=== PATIENT | female | born 1980 | race Caucasian/White ===

== ENCOUNTER 2018-08-01 10:36 | Emergency (ER) | payer OTHER, SELFPAY ==
[2018-08-01 11:09] VITALS: BP 141/93; PULSE 87; RESP 16; TEMP 36.5; O2SAT 100; BMI 34.7
--- NOTE | 2018-08-01 13:04 | ED_ITS ---
HPI - Headache [facility] Last Filed: 08/01/18 16:20> General Chief Complaint: Headache Stated Complaint: Migraine,throwing up Time Seen by Provider: 08/01/18 12:04 Source: patient Mode of arrival: ambulatory Limitations: no limitations History of Present Illness HPI Narrative: The patient is a 38-year-old female nonsmoker who presents with a chief complaint of a migraine since 6:00 a.m. this morning. She denies any thunderclap sensation. She complains of noise sensitivity, less light sensitivity. She complains of nausea vomiting. She took a dose of ibuprofen this morning at about 6:00 a.m., then took 2 doses of Imitrex. Of note she was recently treated for strep throat. she denies any chest pain, shortness of breath, fever. She states her strep throat as much resolved. She denies any thunderclap sensation confusion or altered mental status. She denies any possibility of . She states that the headache as wrapping around front her head like a tension headache. Related Data Previous Rx's Medication Instructions Recorded ondansetron [Zofran ODT] 4 mg SUBLINGUAL Q6HP PRN #5 odt 05/04/17 Allergies Allergy/AdvReac Type Severity Reaction Status Date / Time No Known Drug Allergies Allergy Verified 08/01/18 11:09 Review of Systems <[facility] Last Filed: 08/01/18 16:20> Review of Systems GENERAL: Denies chills, fatigue, malaise, fever, sweats. HEENT: See HPI RESPIRATORY: Denies dyspnea, cough, wheezing, hemoptysis, sputum. CARDIOVASCULAR: Denies chest pain, palpitations, orthopnea, edema, GASTROINTESTINAL: See HPI : Denies dysuria, frequency, incontinence, hematuria, urinary retention. MUSCULOSKELETAL: denies weakness, joint pain, or bony pain SKIN: Denies rash, skin lesions, or other NEUROLOGIC: Denies weakness, headache, numbness, change in speech, confusion, seizures, incoordination. PSYCHIATRIC: No concerning psychosocial issues. 12 point review of systems is negative except for those stated above PFSH <[facility] Last Filed: 08/01/18 16:20> Medical History (Updated 08/01/18 @ 14:49 by JYOTI Kong) Migraines (Acute) Social History Smoking Status: Never smoker Social History Smoking Status: Never smoker Exam <JYOTI Kong - Last Filed: 08/01/18 16:20> Narrative Exam Narrative: GENERAL: This is a well-nourished, well-developed patient, lying on stretcher in no acute distress HEAD: Atraumatic. Normocephalic. No temporal or scalp tenderness. EYES: Pupils equal round and reactive. Extraocular motions intact. No scleral icterus. No injection or drainage. no nystagmus noted bilaterally. ENT: Nose without bleeding, purulent drainage or septal hematoma. Throat without erythema, tonsillar hypertrophy or exudate. Uvula midline. Airway patent. NECK: Trachea midline. No JVD or lymphadenopathy. Supple, nontender, no meningeal signs. CARDIOVASCULAR: Regular rate and rhythm without murmurs, gallops, or rubs. RESPIRATORY: Clear to auscultation. Breath sounds equal bilaterally. No wheezes, rales, or rhonchi. GASTROINTESTINAL: Abdomen soft, non-tender, nondistended. No hepato- splenomegaly, or palpable masses. No guarding. active bowel sounds all 4 quadrants. EXTREMITIES: No clubbing, cyanosis, or edema. No joint tenderness, effusion, or edema noted. BACK: Nontender without deformity or crepitance. No flank tenderness. NEURO: AOx3. Strength is equal upper and lower extremities bilaterally. cranial nerves grossly intact. steady gait. SKIN: No rash or erythema. Initial Vital Signs Initial Vital Signs: Vital Signs Temperature 97.7 F 08/01/18 11:09 Pulse Rate 87 08/01/18 11:09 Respiratory Rate 16 08/01/18 11:09 Blood Pressure 141/93 H 08/01/18 11:09 Pulse Oximetry 100 08/01/18 11:09 <Cassie Montgomery MD - Last Filed: 08/01/18 16:27> Initial Vital Signs Initial Vital Signs: Vital Signs Temperature 97.7 F 08/01/18 11:09 Pulse Rate 87 08/01/18 11:09 Respiratory Rate 16 08/01/18 11:09 Blood Pressure 141/93 H 08/01/18 11:09 Pulse Oximetry 100 08/01/18 11:09 Course <DEVON Kong-[facility] - Last Filed: 08/01/18 16:20> Orders Ordered: ED Orders 08/01/18 13:15 Urine Culture Stat Urine Microscopic Stat Discontinued Medications Diphenhydramine HCl (Benadryl) 25 mg IV NOW ONE Stop: 08/01/18 12:13 Last Admin: 08/01/18 13:28 Dose: 25 mg Sodium Chloride (Normal Saline 0.9%) 1,000 mls @ 1,000 mls/hr IV BOLUS ONE Stop: 08/01/18 13:11 Last Admin: 08/01/18 13:20 Dose: 1,000 mls/hr Ketorolac Tromethamine (Toradol) 30 mg IV NOW ONE Stop: 08/01/18 12:14 Last Admin: 08/01/18 13:20 Dose: Not Given Metoclopramide HCl (Reglan) 10 mg IV NOW ONE Stop: 08/01/18 12:13 Last Admin: 08/01/18 13:20 Dose: 10 mg Vital Signs - 8 hr 08/01/18 11:09 08/01/18 15:00 Temperature 97.7 F Pulse Rate 87 70 Respiratory Rate 16 17 Blood Pressure 141/93 H 117/77 Pulse Oximetry 100 97 <Cassie Montgomery MD - Last Filed: 08/01/18 16:27> Orders Ordered: ED Orders 08/01/18 13:15 Urine Culture Stat Urine Microscopic Stat Discontinued Medications Diphenhydramine HCl (Benadryl) 25 mg IV NOW ONE Stop: 08/01/18 12:13 Last Admin: 08/01/18 13:28 Dose: 25 mg Sodium Chloride (Normal Saline 0.9%) 1,000 mls @ 1,000 mls/hr IV BOLUS ONE Stop: 08/01/18 13:11 Last Admin: 08/01/18 13:20 Dose: 1,000 mls/hr Ketorolac Tromethamine (Toradol) 30 mg IV NOW ONE Stop: 08/01/18 12:14 Last Admin: 08/01/18 13:20 Dose: Not Given Metoclopramide HCl (Reglan) 10 mg IV NOW ONE Stop: 08/01/18 12:13 Last Admin: 08/01/18 13:20 Dose: 10 mg Vital Signs - 8 hr 08/01/18 11:09 08/01/18 15:00 Temperature 97.7 F Pulse Rate 87 70 Respiratory Rate 16 17 Blood Pressure 141/93 H 117/77 Pulse Oximetry 100 97 MDM - Headache <FRANCISCO JAVIER Kong - Last Filed: 08/01/18 16:20> Lab Data Lab Results 08/01/18 Range/Units 13:15 Urine RBC 0-1/hpf (0-5/HPF) Urine WBC 10-30/hpf H (0-5/HPF) Ur Squamous Epith Cells 1-5 /hpf (0-5/HPF) Ur Transition Epith Cell 0-1/hpf (0-5/HPF) Urine Bacteria None seen (None) Ur Culture Indicated? Specimen cultured Point of Care Testing Test Results Negative Urine Dip Bedside Urine Glucose Negative Bedside Urine Bilirubin - Negative Bedside Urine Ketone - Negative Urine Specific [place] 1.015 Bedside Urine Occult Blood - Negative Bedside Urine pH 8.5 Bedside Urine Protein - Negative Bedside Urine Urobilinogen - Negative Bedside Urine Nitrite - Negative Bedside Urine Leukocytes +++ 500 Esterase MDM Narrative Medical decision making narrative: The patient is a 38-year-old female presents with a chief complaint of a migraine headache. She is currently being treated for strep throat. she was given a headache cocktail here in the emergency department and felt much improved and felt ready to go home. I did discuss deferring imaging given that this is a typical migraine for her. She was okay with this and she has no red flag symptoms such as confusion or a thunderclap. She did have leukocyte esterase in her urine, but denies any UTI symptoms. The she elected to wait for the urine culture before initiating treatment for UTI. Discussed return precautions of confusion, repeat vomiting etc. Discussed signs of worsening UTI including flank pain, fever etc. Encouraged patient to follow up with primary care provider. No questions or concerns upon discharge. <Cassie Montgomery MD - Last Filed: 08/01/18 16:27> Lab Data Lab Results 08/01/18 Range/Units 13:15 Urine RBC 0-1/hpf (0-5/HPF) Urine WBC 10-30/hpf H (0-5/HPF) Ur Squamous Epith Cells 1-5 /hpf (0-5/HPF) Ur Transition Epith Cell 0-1/hpf (0-5/HPF) Urine Bacteria None seen (None) Ur Culture Indicated? Specimen cultured Point of Care Testing Test Results Negative Urine Dip Bedside Urine Glucose Negative Bedside Urine Bilirubin - Negative Bedside Urine Ketone - Negative Urine Specific [place] 1.015 Bedside Urine Occult Blood - Negative Bedside Urine pH 8.5 Bedside Urine Protein - Negative Bedside Urine Urobilinogen - Negative Bedside Urine Nitrite - Negative Bedside Urine Leukocytes +++ 500 Esterase Discharge Plan Departure Patient Disposition: Home Clinical Impression: Headache Qualifiers: Headache type: unspecified Headache chronicity pattern: acute headache Intractability: not intractable Qualified Code(s): R51 - Headache Discharge Date/Time: 08/01/18 15:00 Interventions: ED Discharge Assessment Last Done: 08/01/18 15:00 Instructions: DI for Migraine, DI for Headache Activity Restrictions/Additional Instructions: You responded well to the headache medications we gave you today in the emergency department. As I discussed their white blood cells in your urine, but you elected to defer antibiotic treatment for the culture. Please monitor for fever back pain and burning when urinating as these are signs of UTI. Regarding her headache, please follow up with primary care provider in the next few days. Please monitor for confusion and altered mental status as these are signs of a more acute etiology. Please come back to the emergency department if you have any acute concerns. Please follow up with primary care provider in the next few days. Prescriptions: No Action ondansetron [Zofran ODT] 4 MG tablet,disintegrating 4 mg Sublingual Q6HP PRNQty: 5 RF: 0 Referrals: [facility] [Provider Group]
[2018-08-01] MEDS: SODIUM CHLORIDE 0.9% 1,000 ML 1000 ML IV (13:20)
[2018-08-01] MEDS: METOCLOPRAMIDE 10 MG/2 ML INJ IV (13:20)
[2018-08-01] MEDS: diphenhydrAMINE 50 MG/ML VIAL 25 MG IV (13:28)
[2018-08-01 14:10] LABS: Bacteria Urine None Seen
[2018-08-01 14:35] LABS: RBC Urine 0-1/HPF (0-5/HPF); Squamous Epithelial Cell Urine 1-5 /HPF (0-5/HPF); WBC Urine 10-30/HPF (0-5/HPF)
[2018-08-01 14:36] LABS: Culture Indicated Urine Specimen Cultured; Transitional Epi Cells Urine 0-1/HPF (0-5/HPF)
[2018-08-01 15:00] VITALS: BP 117/77; PULSE 70; RESP 17; O2SAT 97
--- NOTE | 2018-08-08 08:25 | PC.NURSE ---
IV infused in 70 minutes from time of start.
== END 2018-08-01 15:00 | disposition home or self-care (01) ==
PROVIDERS: Emergency Provider Nurse Practitioner Family
DX: R51 Headache (principal); R11.2 Nausea with vomiting, unspecified
CPT/HCPCS: 36591; 81003; 81015; 81025; 87077; 87086; 87186; 96361; 96374; 96375; 99282; 99284; J1200; J1885; J2765

== ENCOUNTER → 2019-10-27 06:38 | Outpatient (CLI) | payer OTHER, SELFPAY ==
--- NOTE | 2019-10-27 | DI.MRI.S_ITS ---
PROCEDURE: MR STROKE Pre- and post-contrast brain MRI, non-contrast brain MR angiogram, pre- and postcontrast neck MR angiogram INDICATIONS: Tinnitus, right ear TECHNIQUE: Brain: Noncontrast axial T1 spin echo, axial T2 fast spin echo, sagittal and axial FLAIR, coronal T2 fast spin echo, axial gradient echo, axial diffusion and ADC through the brain. After the administration of contrast, axial 3D VIBE of the cranial vasculature and brain. Brain MRA: Non-contrast 3-D time of flight MR angiogram, with multiple dobximz-wkefkxwxr-mmkdiwjcdr (MIP) reformats performed. Neck MRA: Axial and sagittal TruFISP through the neck. Coronal dynamic MR angiogram during administration of contrast in the arterial and venous phases, with 3-dimenstional sebvqev-jduuiwuwh-belnoqbnvl (MIP) reformats constructed from subtraction images. COMPARISON: None. FINDINGS: Image quality: Excellent. BRAIN: CSF spaces: Ventricles are normal in size and shape. Basal cisterns are patent. No extra-axial fluid collections. Brain: No intracranial bleeds or mass effects. [place]-white matter interface is normal. There are minimal periventricular and subcortical white matter chronic microvascular ischemic changes. Diffusion weighted images show no acute ischemic insults. No GRE weighted abnormalities identified in the brain parenchyma. Brainstem appears normal. Normal intravascular flow voids are present. No abnormal intracranial enhancement. Skull and face: Calvarial marrow signal is normal. Orbits appear normal. Sinuses: Mild bilateral maxillary sinus mucosal thickening. The mastoids are clear. BRAIN MR ANGIOGRAM: Anterior circulation: Intracranial internal carotid arteries are normal in size and enhancement. The flow within the paired anterior cerebral arteries is normal and symmetric. The flow within the middle cerebral arteries is normal and symmetric. The anterior communicating artery is seen. No stenoses, occlusions, or aneurysms. Posterior circulation: The visualized portions of the vertebral arteries demonstrate normal caliber, and join to form a normal appearing basilar artery. The flow within the posterior cerebral arteries is normal and symmetric. No stenoses, occlusions, or aneurysms. NECK MR ANGIOGRAM: Carotids: Great vessels demonstrate a conventional anatomy as they arise from the aortic arch. The origins of the common carotid arteries appear patent. The calibers and courses of both common carotid arteries are normal. The bifurcation regions appear normal bilaterally. The internal carotid arteries demonstrate normal course and caliber. Posterior circulation: The origins of the vertebral arteries appear patent. More superior portions of both vertebral arteries demonstrate normal course and caliber, and join to form a normal appearing basilar artery. Miscellaneous: Subclavian arteries appear patent. Pre-contrast images through the neck show no soft tissue abnormalities. IMPRESSION: BRAIN MRI: 1. No acute intracranial disease process. 2. No areas of acute or chronic infarction. 3. No abnormal renal mass or suspicious postcontrast enhancement. 4. Minimal periventricular and subcortical white matter chronic microvascular ischemic change. BRAIN MR ANGIOGRAM: Negative examination. NECK MR ANGIOGRAM: Negative examination. Dictated by: Selene Wilson MD, PhD on 10/27/2019 at 10:04 Approved by: Selene Wilson MD, PhD on 10/27/2019 at 10:23
== END ==
PROVIDERS: PCP Registered Nurse Diabetes Educator; Referring Provider Otolaryngology; Visit Provider Otolaryngology
DX: H93.11 Tinnitus, right ear (principal)
CPT/HCPCS: 70548; 70553

== ENCOUNTER 2019-12-06 11:55 | Emergency (ER) | payer OTHER, SELFPAY ==
[2019-12-06 12:02] VITALS: BP 140/79; PULSE 88; RESP 16; TEMP 36.9; O2SAT 98
--- NOTE | 2019-12-06 12:08 | DI.RAD.S_ITS ---
PROCEDURE: XR FOREARM RT 2V INDICATIONS: fall w/ point tenderness elbow, FA, wrist. TECHNIQUE: 2 views of the forearm were acquired. COMPARISON: [facility], CR, XR WRIST RT MIN 3V, 12/06/2019, 12:02. [facility], CR, XR ELBOW RT MIN 3V, 12/06/2019, 12:02. FINDINGS: Bones: Probable radial head fracture. No dislocations. No suspicious bony lesions. Soft tissues: No suspicious soft tissue calcifications or masses. IMPRESSION: Probable radial head fracture. Dictated by: Anna Morillo M.D. on 12/06/2019 at 11:58 Approved by: Anna Morillo M.D. on 12/06/2019 at 12:00
--- NOTE | 2019-12-06 12:08 | DI.RAD.S_ITS ---
PROCEDURE: XR ELBOW RT MIN 3V INDICATIONS: fall w/ point tenderness elbow, FA, wrist. TECHNIQUE: 3 views of the elbow were acquired. COMPARISON: None. FINDINGS: Bones: Probable radial head fracture. No dislocations. No suspicious bony lesions. Soft tissues: There is small elbow joint effusion. No suspicious soft tissue calcifications. IMPRESSION: Probable radial head fracture. There is a small elbow effusion. Dictated by: Anna Morillo M.D. on 12/06/2019 at 12:00 Approved by: Anna Morillo M.D. on 12/06/2019 at 12:03
--- NOTE | 2019-12-06 12:08 | DI.RAD.S_ITS ---
PROCEDURE: XR WRIST RT MIN 3V INDICATIONS: fall w/ point tenderness elbow, FA, wrist. TECHNIQUE: 4 views of the wrist were acquired. COMPARISON: [facility], CR, XR FOREARM RT 2V, 12/06/2019, 12:02. FINDINGS: Bones: No fractures or dislocations. No suspicious bony lesions. Scaphoid view: Scaphoid appears intact. Soft tissues: No suspicious soft tissue calcifications. IMPRESSION: No acute osseous abnormalities. Dictated by: Anna Morillo M.D. on 12/06/2019 at 11:53 Approved by: Anna Morillo M.D. on 12/06/2019 at 11:57
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
[2019-12-06] MEDS: ACETAMINOPHEN 325 MG TABLET 975 MG PO (12:23)
[2019-12-06] MEDS: IBUPROFEN 400 MG TABLET PO (12:23)
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
[2019-12-06 14:09] VITALS: BP 128/78; PULSE 78; O2SAT 98
== END 2019-12-06 14:22 | disposition home or self-care (01) ==
PROVIDERS: Emergency Provider Nurse Practitioner; PCP Registered Nurse Diabetes Educator
DX: S52.124A Nondisplaced fracture of head of right radius, initial encounter for closed fracture (principal); V19.9XXA Pedal cyclist (driver) (passenger) injured in unspecified traffic accident, initial encounter
CPT/HCPCS: 29105; 73080; 73090; 73110; 99283